=== PATIENT | female | born 1935 | race Caucasian/White ===

== ENCOUNTER 2016-12-05 18:23 | Inpatient (IN) | payer MEDICARE ==
[~2016-12-05] VITALS: Ht 162.6 cm; Wt 59.2 kg
[2016-12-05] MEDS: D5 1/2 NS W/KCL 20 MEQ/L 1,000 ML IV SCH (01:55)
[2016-12-05] MEDS ORDERED: SODIUM CHLORIDE 250 ML IV PRN (19:15)
[2016-12-05] MEDS ORDERED: NITROGLYCERIN SUBLINGUAL 0.4 MG (NITROQUICK) TABLET SL PRN (19:15)
[2016-12-05] MEDS ORDERED: ONDANSETRON 2 MG/ML (Z0FRAN) 2 ML VIAL IV ONE (19:15)
[2016-12-05] MEDS ORDERED: ASPIRIN 81 MG CHEW (CHILDREN'S ASA) PO ONE (19:15)
[2016-12-05] MEDS ORDERED: SODIUM CHLORIDE FLUSH 3 ML SYR IV PRN (19:15)
[2016-12-05] MEDS ORDERED: morphine INJ 4 MG/ML 1 ML SYRINGE IV PRN (19:15)
[2016-12-05] MEDS ORDERED: SODIUM CHLORIDE FLUSH 10 ML SYR IV PRN (19:15)
[2016-12-05 19:32] LABS: MEAN CORPUSCULAR HEMOGLOBIN 29.4 PG (26.0-34.0); MEAN CORPUSCULAR HGB CONC 31.9 g/dL (31.0-37.0); MEAN CORPUSCULAR VOLUME 92 FL (80-100); MEAN PLATELET VOLUME 10.9 FL (6.0-9.5); PLATELET COUNT 326 10^3uL (150-450); WHITE BLOOD COUNT 9.88 10^3uL (4.0-11.0)
[2016-12-05 19:37] LABS: ALBUMIN 2.9 g/dL (3.4-5.0); ALKALINE PHOSPHATASE 116 U/L (38-126); ANION GAP 13.1 MEQ/L (3-15); BUN/CREATININE RATIO 29 (10-20); CALCULATED IONIZED CALCIUM 3.8 mg/dL (3.8-4.6); CREATINE KINASE 41 U/L (30-135); TOTAL PROTEIN 7.5 g/dL (6.4-8.5)
[2016-12-05 19:47] LABS: BAND NEUTROPHILS % 2 % (0-6); EOSINOPHILS % 0 % (0-4); MONOCYTES # 0.3 #; MONOCYTES % 3 % (3-11); RBC MORPH NORMAL (NORMAL); SEGMENTED NEUTROPHILS % 95 % (51-67); TOTAL CELLS COUNTED 100
--- NOTE | 2016-12-05 20:28 | NUR ---
Note [email or web address] in EDM - 12/05/16 at 2051 by [id number] Officer Rusty from the [facility] department called to give us more information that he had recieved after speakinig with patient's sister. He reported, "I was speaking with patient's sister who told me that patient was talking to her yesterday about taking the ambien, was talking about Suicide and she said the reason he was feeling this was was from losing his 2 years ago, moving and losing his job. She said he has been really depressed and has been talking about suicide for a while now." I relayed information to Dr. Ngo and Darcie Sifuentes RN taking care of patient.
--- NOTE | 2016-12-05 20:49 | NUR ---
DUPLICATE TRIAGE ASSESSMENT ENTERED DUE TO HEIGHT AND WEIGHT BEING INCORRECT.
--- NOTE | 2016-12-05 22:24 | NUR ---
TEMP RECHECKED, 101.0 ORAL
[2016-12-05] MEDS ORDERED: ACETAMINOPHEN 500 MG TAB (TYLENOL) PO ONE (22:25)
[2016-12-05] MEDS ORDERED: AZITHROMYCIN VIAL 500 MG in SODIUM CHLORIDE 250 ML IV ONE ×4 (22:40)
[2016-12-05] MEDS ORDERED: cefTRIAXone SODIUM 1,000 MG in SODIUM CHLORIDE 50 ML IV ONE ×4 (22:40)
[2016-12-05] MEDS ORDERED: ACETAMINOPHEN 325 MG TAB (TYLENOL) PO PRN (22:45)
[2016-12-05] MEDS ORDERED: ONDANSETRON 4 MG (ZOFRAN) ORAL DISSOLVE TAB PO PRN (22:45)
[2016-12-05] MEDS ORDERED: LACTATED RINGERS 1,000 ML IV SCH (22:45)
[2016-12-05] MEDS ORDERED: SODIUM CHLORIDE 50 ML IV ONE (22:53)
[2016-12-05] MEDS ORDERED: cefTRIAXone 1 GM (ROCEPHIN) VIAL ONE (22:53)
[2016-12-05] MEDS ORDERED: ALBUTEROL 0.083% NEB SOLUTION 2.5 MG/3 ML VIAL INH PRN (23:00)
[2016-12-05] MEDS ORDERED: AZITHROMYCIN 500 MG (ZITHROMAX) VIAL IV ONE (23:31)
[2016-12-05] MEDS ORDERED: SODIUM CHLORIDE 250 ML ONE (23:31)
[2016-12-05] MEDS ORDERED: SODIUM CHLORIDE FLUSH 3 ML SYR ONE (23:32)
[2016-12-05 23:36] VITALS: BP 115/51
[2016-12-05 23:38] VITALS: BP 115/51
--- NOTE | 2016-12-05 23:38 | NUR ---
Pt arrived to room 318 via cart, accompanied by daughter and Emily RN. Alert and oriented x4, Resp are even and nonlabored, hear fine crackles to bilateral upper lobes, with diminished bases bilaterally, HRRR, paced a-fib on telemetry, BS are active x 4 quadrants. Denies pain or discomfort at this time, started LR 1000ml over 2 hrs and IV Zithromax. RT is hear giving breathing treatment. Call light is in reach, will continue to monitor.
[2016-12-05 23:39] VITALS: BP 115/51
[2016-12-05] MEDS: ALBUTEROL/IPRATROPIUM 3MG-0.5MG/3ML (DUONEB) NEB VIAL INH SCH (23:52)
[2016-12-06 04:41] VITALS: BP 100/55
--- NOTE | 2016-12-06 04:55 | NUR ---
Pt is resting in bed asleep, has not had any pain or discomfort during this shift. Currently receiving D51/2NS with 20mEQ at 125mls. Call light is in reach, will continue to monitor.
[2016-12-06 06:07] LABS: BASOPHILS % (AUTO) 0 % (0-2); EOSINOPHILS % (AUTO) 0 % (0-4); LYMPHOCYTES # (AUTO) 0.4 X10^3; MEAN CORPUSCULAR HEMOGLOBIN 28.9 PG (26.0-34.0); MEAN CORPUSCULAR VOLUME 93 FL (80-100); MEAN PLATELET VOLUME 10.6 FL (6.0-9.5); MONOCYTES # (AUTO) 0.5 X10^3; MONOCYTES % (AUTO) 11 % (3-11); NEUTROPHILS # (AUTO) 4.2 X10^3; NEUTROPHILS % (AUTO) 81 % (51-67); PLATELET COUNT 295 10^3uL (150-450); WHITE BLOOD COUNT 5.14 10^3uL (4.0-11.0)
[2016-12-06 06:14] LABS: MEAN CORPUSCULAR HGB CONC 31.1 g/dL (31.0-37.0)
[2016-12-06 06:31] LABS: ANION GAP 8.5 MEQ/L (3-15)
[2016-12-06] MEDS: ALBUTEROL/IPRATROPIUM 3MG-0.5MG/3ML (DUONEB) NEB VIAL INH SCH ×3 (06:38→19:25)
--- NOTE | 2016-12-06 07:50 | NUR ---
Patient sitting up in bed consuming breakfast upon shift assessment. 5L of 02 per oxymask off of face. Continuous pulse oximetry intact and reflecting oxygen saturation of 88%. 2.5L of 02 applied per nc. Patient states that is her chronic home regimen. Saturation quickly recovers to 97%. Respirations even and non-labored. Patient reports chronic "bone" pain. Denies SOA, nausea, or chills. Updated on plan of care for shift. Call light in reach.
[2016-12-06 08:04] VITALS: BP 130/62
[2016-12-06] MEDS ORDERED: NS FLUSH 3 ML PRN IV (08:45)
[2016-12-06] MEDS: METOCLOPRAMIDE 5 MG (REGLAN) TAB PO SCH ×4 (08:45→21:00)
[2016-12-06] MEDS: NS FLUSH 3 ML DAILY IV SCH (09:00)
[2016-12-06] MEDS ORDERED: LOSARTAN 50 MG (COZAAR) TABLET PO SCH (09:00)
[2016-12-06] MEDS ORDERED: ATORVASTATIN 40 MG PO SCH (09:00)
[2016-12-06] MEDS ORDERED: DILTIAZEM HCL 240 MG PO SCH (09:00)
[2016-12-06] MEDS ORDERED: [UNRECOGNIZED DRUG - OTHER] PO SCH (09:00)
[2016-12-06] MEDS ORDERED: OMEPRAZOLE 40 MG PO SCH (09:00)
[2016-12-06] MEDS: ISOSORBIDE MONONITRATE 30 MG (IMDUR) TAB PO SCH (09:13)
[2016-12-06] MEDS: meTOproloL SUCCINATE 50 MG (TOPROL XL) TAB PO SCH (09:13)
[2016-12-06] MEDS: HYDROcodone/APAP 7.5 MG/325 MG (NORCO) TABLET PO SCH ×2 (09:13→21:00)
[2016-12-06] MEDS: LOSARTAN 25 MG (COZAAR) TABLET PO SCH (09:13)
[2016-12-06] MEDS: ASPIRIN 81 MG CHEW (CHILDREN'S ASA) PO SCH (09:13)
[2016-12-06] MEDS: DILTIAZEM CD 240 MG (CARDIZEM CD) CAP PO SCH (09:13)
[2016-12-06] MEDS: ENOXAPARIN 40 MG/0.4 ML (LOVENOX) SYR SC SCH (09:14)
[2016-12-06] MEDS: PANTOPRAZOLE 40 MG (PROTONIX) TAB PO SCH (09:14)
[2016-12-06] MEDS: D5 1/2 NS W/KCL 20 MEQ/L 1,000 ML IV SCH (10:40)
[2016-12-06 12:09] VITALS: BP 102/52
[2016-12-06] MEDS ORDERED: DOCUSATE SODIUM 100 MG (COLACE) CAP PO PRN (14:55)
[2016-12-06] MEDS ORDERED: POLYETHYLENE GLYCOL 17 GM (MIRALAX) PACKET PO PRN (14:55)
[2016-12-06] MEDS ORDERED: MAGNESIUM HYDROXIDE 80MG/ML (MILK OF MAGNESIA) 30 ML UDC PO PRN (14:55)
[2016-12-06] MEDS ORDERED: D5 1/2 NS W/KCL 20 MEQ/L 1,000 ML IV SCH (15:45)
[2016-12-06 16:01] VITALS: BP 150/68
[2016-12-06 16:38] LABS: INFLUENZA VIRUS TYPE A ANTIBOD Negative (NEGATIVE); INFLUENZA VIRUS TYPE B ANTIBOD Negative (NEGATIVE)
--- NOTE | 2016-12-06 18:01 | NUR ---
MED REC COMPLETE--current med list obtained from external med history application and retail pharmacy ([facility]).
--- NOTE | 2016-12-06 18:09 | NUR ---
Patient sitting up in bed consuming supper. Reports two loose stools this afternoon that is worrisome to her. Dr. Andrews notified. Denies pain, SOA, or other distress. 2.5L of 02 intact per mo. Telemetry discontinued per order. Call light in reach.
[2016-12-06] MEDS ORDERED: ALBUTEROL 0.083% NEB SOLUTION 2.5 MG/3 ML VIAL INH PRN (19:00)
[2016-12-06] MEDS ORDERED: ALBUTEROL/IPRATROPIUM 3MG-0.5MG/3ML (DUONEB) NEB VIAL INH ONE (19:08)
[2016-12-06] MEDS ORDERED: NITROGLYCERIN SUBLINGUAL 0.4 MG (NITROQUICK) TABLET SL PRN (19:15)
[2016-12-06 20:02] VITALS: BP 114/58
[2016-12-06] MEDS: MIRTAZAPINE 15 MG (REMERON) TABLET PO SCH (21:00)
[2016-12-06] MEDS: cefTRIAXone SODIUM 1,000 MG in SODIUM CHLORIDE 50 ML IV SCH (21:00)
[2016-12-06] MEDS ORDERED: cefTRIAXone SODIUM 1,000 MG in SODIUM CHLORIDE 50 ML IV SCH (21:00)
[2016-12-06] MEDS: ATORVASTATIN 40 MG (LIPITOR) TABLET PO SCH (21:00)
[2016-12-06] MEDS ORDERED: AZITHROMYCIN VIAL 500 MG in SODIUM CHLORIDE 250 ML IV SCH (21:30)
[2016-12-06] MEDS: AZITHROMYCIN VIAL 500 MG in SODIUM CHLORIDE 250 ML IV SCH (22:07)
[2016-12-06 23:43] VITALS: BP 107/43
[2016-12-07 03:59] VITALS: BP 124/57
--- NOTE | 2016-12-07 05:13 | NUR ---
Pt has been resting in bed asleep for most of this shift, reports that scheduled [place] has help with lower back pain. Denies needs at this time. Call light in reach, will continue to monitor.
[2016-12-07] MEDS: METOCLOPRAMIDE 5 MG (REGLAN) TAB PO SCH ×4 (06:06→20:10)
[2016-12-07] MEDS: PANTOPRAZOLE 40 MG (PROTONIX) TAB PO SCH (06:06)
[2016-12-07 07:37] VITALS: BP 125/57
[2016-12-07] MEDS: ALBUTEROL/IPRATROPIUM 3MG-0.5MG/3ML (DUONEB) NEB VIAL INH SCH ×3 (07:57→19:53)
--- NOTE | 2016-12-07 08:26 | NUR ---
NUTRITION ASSESSMENT Level 1 Patient: Valerie Mckeon Age/Sex: 81/F Date Screened: 12-07-16 Weight: 132.4#/60.2 kg Height: 64 inches Primary Diagnosis: sepsis, pneumonia Diet Order: cardiac Relevant labs: N/A Food allergies: N Nutrition Assessment Criteria Age over 80: 4 points Body Mass Index (BMI) under 19: N Admission Screening Indicates Risk? 6 points Moderate/High Risk Diagnosis: 3 points TPN or PPN: N NPO or clear liquid diet: N Serum Glucose <70 or >180: N/A Hgb A1c >6.7: N/A Total: 13 points Risk Screen: __ Patient at low nutritional risk based on available data; reevaluate in 5-7 days __ Patient at moderate nutritional risk based on available data; reevaluate in 3-5 days _X_ Patient at high nutritional risk; complete Nutrition Assessment within 48 hours of admission.
[2016-12-07] MEDS ORDERED: ATORVASTATIN 40 MG (LIPITOR) TABLET PO SCH (09:00)
[2016-12-07] MEDS: DILTIAZEM CD 240 MG (CARDIZEM CD) CAP PO SCH (09:15)
[2016-12-07] MEDS: ASPIRIN 81 MG CHEW (CHILDREN'S ASA) PO SCH (09:15)
[2016-12-07] MEDS: HYDROcodone/APAP 7.5 MG/325 MG (NORCO) TABLET PO SCH ×2 (09:15→20:11)
[2016-12-07] MEDS: meTOproloL SUCCINATE 50 MG (TOPROL XL) TAB PO SCH (09:16)
[2016-12-07] MEDS: ISOSORBIDE MONONITRATE 30 MG (IMDUR) TAB PO SCH (09:16)
[2016-12-07] MEDS: ENOXAPARIN 40 MG/0.4 ML (LOVENOX) SYR SC SCH (09:16)
[2016-12-07] MEDS: LOSARTAN 25 MG (COZAAR) TABLET PO SCH (09:16)
[2016-12-07] MEDS: guaiFENesin ER 600 MG (MUCINEX) TAB PO SCH ×2 (09:16→20:10)
[2016-12-07] MEDS: NS FLUSH 3 ML DAILY IV SCH (09:17)
--- NOTE | 2016-12-07 11:51 | NUR ---
Amb with PT. Gait steady. Jessica well. O2 sat 93% on 3 L/ NC while amb PT reports.
[2016-12-07 11:59] VITALS: BP 114/53
--- NOTE | 2016-12-07 12:43 | NUR ---
NUTRITION ASSESSMENT Level II Patient: Valerie Mckeon Age/Sex: 81/F Date Assessed: 12-07-16 ASSESSMENT Pertinent History: Patient admitted with sepsis and pneumonia, and screened at high nutritional risk secondary to decreased appetite in elderly female with hx. unintentional weight loss over the past 4 years that appears to be ongoing. PMHx includes GERD, IBS, Pagets disease of the brain, CAD, diabetes and chronic low back pain. Weight hx. includes 50# loss between [id number] for which no etiology was found. She had an EGD in 2014 and weighed 167#. Since then, she is down another 35#. She lives at home with her . Meds/Nutrition: Remeron, Protonix, Reglan Weight: 132.4#/60.2 kg Height: 64 inches Body Mass Index (BMI): 22.8 [place] Body Weight : 120#/54.5 kg % IBW: 110% GASTROINTESTINAL Appetite: poor, taking bites-50% Diet Order: cardiac Unintentional loss of >10 lbs. in 3 months: N Difficult to chew/swallow: N Diabetes: Yes Relevant Labs: N/A Calculations for Nutritional Assessment Estimated calorie needs: 25-28 kcals/kg = 1,500-1,680 kcals Estimated protein needs: 1.0-1.3 g/kg = 60-78 g./day DIAGNOSIS 1. Nutrition Diagnosis: Inadequate intake related to decreased appetite as evidenced by 32# (20.9%) weight loss in the past 2 years with c/o chronically low appetite for the past 5 years with undetermined etiology. NUTRITIONAL INTERVENTION Goal: Patient will receive adequate nutrition to meet her needs and maintain weight. Plan: Agree with Remeron in the hopes that it may stimulate her appetite as well as address her anxiety. Consider liberalizing diet from cardiac (which is 2 g. sodium/low fat) to [id number] to improve the taste of food and help increase p.o. intake. Noted she is getting Ensure--consider Glucerna instead, as she has diabetes and blood sugars were slightly elevated. Pt. may benefit from smaller, more frequent portions as well. Will follow closely. MONITORING & EVALUATION _X_ Monitor patients menu selections _X_ Monitor patients food intake per nursing notes __ Monitor NPO/clear liquid days __ Monitor lab values __ Monitor I&O __ Other
[2016-12-07 15:35] VITALS: BP 109/53
--- NOTE | 2016-12-07 19:39 | NUR ---
Pt seen and assessed. Denies pain. States that she feels very tired. Requests to have evening pills given as soon as available so that she can get some rest. Cont on 2.5L oxygen per nc. No further needs at this time.
[2016-12-07 19:44] VITALS: BP 121/49
--- NOTE | 2016-12-07 19:55 | NUR ---
Pt found lying in bed on 2.5 l/min equal to home use, SPO2 91%, HR 70, RR 16 and nonlabored. Rhonchi heard in all lung [place] upon auscultation before and after Duoneb. Acapella X5 after Tx producing a large amount of sputum with a loose cough.
[2016-12-07] MEDS ORDERED: SODIUM CHLORIDE 250 ML ONE (20:06)
[2016-12-07] MEDS: ATORVASTATIN 40 MG (LIPITOR) TABLET PO SCH (20:10)
[2016-12-07] MEDS: ZOLPIDEM 5 MG (AMBIEN) TAB PO SCH (20:10)
[2016-12-07] MEDS: MIRTAZAPINE 15 MG (REMERON) TABLET PO SCH (20:10)
[2016-12-07] MEDS: NS FLUSH 10 ML PRN IV (20:11)
[2016-12-07] MEDS: cefTRIAXone SODIUM 1,000 MG in SODIUM CHLORIDE 50 ML IV SCH (20:11)
[2016-12-07] MEDS: AZITHROMYCIN VIAL 500 MG in SODIUM CHLORIDE 250 ML IV SCH (20:42)
[2016-12-07 23:58] VITALS: BP 109/50
[2016-12-08 04:32] VITALS: BP 124/56
[2016-12-08] MEDS: PANTOPRAZOLE 40 MG (PROTONIX) TAB PO SCH (06:20)
[2016-12-08] MEDS: METOCLOPRAMIDE 5 MG (REGLAN) TAB PO SCH ×4 (06:20→20:04)
--- NOTE | 2016-12-08 06:23 | NUR ---
Pt states that she rested "better" tonight, but "not good enough for having a sleeping pill." Denies pain. Cont on 2.5L oxygen. SL intact. No needs at this time.
--- NOTE | 2016-12-08 07:30 | NUR ---
Patient awake sitting on edge of bed eating breakfast and visiting with and son. Patient denies any pain at this time but requested scheduled [place]. Scheduled [place] given with morning medications. Patient is alert and oriented X3. Patient denies any new concerns at this time. Will continue to monitor patient.
[2016-12-08] MEDS: guaiFENesin ER 600 MG (MUCINEX) TAB PO SCH ×2 (08:12→20:05)
[2016-12-08] MEDS: DILTIAZEM CD 240 MG (CARDIZEM CD) CAP PO SCH (08:12)
[2016-12-08] MEDS: meTOproloL SUCCINATE 50 MG (TOPROL XL) TAB PO SCH (08:12)
[2016-12-08] MEDS: ISOSORBIDE MONONITRATE 30 MG (IMDUR) TAB PO SCH (08:12)
[2016-12-08] MEDS: ASPIRIN 81 MG CHEW (CHILDREN'S ASA) PO SCH (08:12)
[2016-12-08] MEDS: LOSARTAN 25 MG (COZAAR) TABLET PO SCH (08:12)
[2016-12-08] MEDS: ENOXAPARIN 40 MG/0.4 ML (LOVENOX) SYR SC SCH (08:13)
[2016-12-08] MEDS: NS FLUSH 3 ML DAILY IV SCH (08:13)
[2016-12-08] MEDS: HYDROcodone/APAP 7.5 MG/325 MG (NORCO) TABLET PO SCH ×2 (08:13→20:10)
[2016-12-08 08:23] VITALS: BP 143/64
[2016-12-08] MEDS: ALBUTEROL/IPRATROPIUM 3MG-0.5MG/3ML (DUONEB) NEB VIAL INH SCH ×3 (08:24→19:55)
[2016-12-08 12:08] VITALS: BP 100/47
[2016-12-08 15:53] VITALS: BP 105/52
--- NOTE | 2016-12-08 18:32 | NUR ---
Uneventful day shift. Patient remains on chronic 2.5L of 02 per nc. Denies pain or distress. Ambulates into bathroom and around room with steady gate throughout day. Pleasant and cooperative with cares. Call light in reach.
[2016-12-08 19:34] VITALS: BP 139/55
--- NOTE | 2016-12-08 19:58 | NUR ---
Pt is laying in bed with head elevated, tolerated tx well. On 2.5L NC SPO2 91%.
[2016-12-08] MEDS: NS FLUSH 10 ML PRN IV (20:04)
[2016-12-08] MEDS: ZOLPIDEM 5 MG (AMBIEN) TAB PO SCH (20:04)
[2016-12-08] MEDS: cefTRIAXone SODIUM 1,000 MG in SODIUM CHLORIDE 50 ML IV SCH (20:04)
[2016-12-08] MEDS: MIRTAZAPINE 15 MG (REMERON) TABLET PO SCH (20:05)
[2016-12-08] MEDS: ATORVASTATIN 40 MG (LIPITOR) TABLET PO SCH (20:05)
--- NOTE | 2016-12-08 20:05 | NUR ---
SL does not flush. Redness, slight swelling noted around catheter hub. IV discontinued; catheter tip intact. This nurse attempts x3 to restart IV; all unsuccessful. Gema RN starts 22g to RBH on first attempt.
[2016-12-08 23:57] VITALS: BP 152/61
[2016-12-09 04:08] VITALS: BP 128/72
[2016-12-09] MEDS: METOCLOPRAMIDE 5 MG (REGLAN) TAB PO SCH ×4 (06:22→20:44)
[2016-12-09] MEDS: PANTOPRAZOLE 40 MG (PROTONIX) TAB PO SCH (06:22)
--- NOTE | 2016-12-09 06:24 | NUR ---
Pt rests in long intervals throughout the night. minimal c/o pain. States she feels like she is getting constipated. PRN laxatives offered last evening. Pt requests to wait until morning; prefers MOM. SL intact. Cont on 2.5L oxygen per nc. Denies needs this morning.
--- NOTE | 2016-12-09 08:05 | NUR ---
C/o needing something for bowels. Has hard formed brown stool. Miralax 17 gm and Colace 100 mg given for constipation. Up ad sharon in room - steady on ambulation.
[2016-12-09 08:26] VITALS: BP 135/59
[2016-12-09 09:15] LABS: BASOPHILS % (AUTO) 2 % (0-2); EOSINOPHILS % (AUTO) 1 % (0-4); LYMPHOCYTES # (AUTO) 0.5 X10^3; MEAN CORPUSCULAR HEMOGLOBIN 28.9 PG (26.0-34.0); MEAN CORPUSCULAR VOLUME 93 FL (80-100); MEAN PLATELET VOLUME 11.1 FL (6.0-9.5); MONOCYTES # (AUTO) 0.4 X10^3; MONOCYTES % (AUTO) 13 % (3-11); NEUTROPHILS # (AUTO) 1.8 X10^3; NEUTROPHILS % (AUTO) 66 % (51-67); PLATELET COUNT 308 10^3uL (150-450); WHITE BLOOD COUNT 2.65 10^3uL (4.0-11.0)
[2016-12-09 09:21] LABS: MEAN CORPUSCULAR HGB CONC 31.2 g/dL (31.0-37.0)
[2016-12-09 09:24] LABS: ANION GAP 10.5 MEQ/L (3-15); MAGNESIUM* 1.7 mg/dL (1.6-2.3)
[2016-12-09] MEDS: ALBUTEROL/IPRATROPIUM 3MG-0.5MG/3ML (DUONEB) NEB VIAL INH SCH ×3 (09:40→20:28)
[2016-12-09] MEDS: NS FLUSH 3 ML DAILY IV SCH ×2 (09:56→20:45)
[2016-12-09] MEDS: ISOSORBIDE MONONITRATE 30 MG (IMDUR) TAB PO SCH (09:57)
[2016-12-09] MEDS: ASPIRIN 81 MG CHEW (CHILDREN'S ASA) PO SCH (09:57)
[2016-12-09] MEDS: LOSARTAN 25 MG (COZAAR) TABLET PO SCH (09:57)
[2016-12-09] MEDS: guaiFENesin ER 600 MG (MUCINEX) TAB PO SCH ×2 (09:57→20:43)
[2016-12-09] MEDS: meTOproloL SUCCINATE 50 MG (TOPROL XL) TAB PO SCH (09:57)
[2016-12-09] MEDS: HYDROcodone/APAP 7.5 MG/325 MG (NORCO) TABLET PO SCH ×2 (09:58→20:44)
[2016-12-09] MEDS: ENOXAPARIN 40 MG/0.4 ML (LOVENOX) SYR SC SCH (09:58)
[2016-12-09] MEDS: DILTIAZEM CD 240 MG (CARDIZEM CD) CAP PO SCH (09:58)
[2016-12-09 12:05] VITALS: BP 98/47
[2016-12-09 16:13] VITALS: BP 115/53
--- NOTE | 2016-12-09 17:51 | NUR ---
Loose NPC with acapella use. O2 @ 2.5L nc (home use). Jessica. tx's well.
--- NOTE | 2016-12-09 18:36 | NUR ---
Dozing now. Has voiced no complaints of pain. Resp. even and unlabored. States has a poor appetite. No c/o nausea. Up ad sharon in room.
--- NOTE | 2016-12-09 20:00 | NUR ---
Patient resting in bed. Is alert and oriented. Skin warm and dry. Color pale. Oxygen on at 2.5 liters per nasal cannula. Denies any discomforts at this time. Call light within reach.
[2016-12-09 20:06] VITALS: BP 128/68
--- NOTE | 2016-12-09 20:30 | NUR ---
Pt found lying in bed on 2.5 l/min NC, SPO2 93%, HR 79, RR 14 and non labored. BS clear before and after Duoneb via SVN/MASK. Acapella X 5 post Tx inducing a loose NPC.
[2016-12-09] MEDS: ATORVASTATIN 40 MG (LIPITOR) TABLET PO SCH (20:43)
[2016-12-09] MEDS: ZOLPIDEM 5 MG (AMBIEN) TAB PO SCH (20:43)
[2016-12-09] MEDS: MIRTAZAPINE 15 MG (REMERON) TABLET PO SCH (20:43)
[2016-12-09] MEDS: cefTRIAXone SODIUM 1,000 MG in SODIUM CHLORIDE 50 ML IV SCH (20:44)
--- NOTE | 2016-12-09 22:00 | NUR ---
Patient ready for sleep. HS cares given. Tolerates IV Antibiotics well. No signs of infiltration at IV site. Call light within reach. No discomforts voiced at this time. Oxygen remains at 2.5 liters.
[2016-12-09 23:51] VITALS: BP 105/51
[2016-12-10 04:58] VITALS: BP 119/53
[2016-12-10] MEDS: PANTOPRAZOLE 40 MG (PROTONIX) TAB PO SCH (06:14)
[2016-12-10] MEDS: METOCLOPRAMIDE 5 MG (REGLAN) TAB PO SCH ×4 (06:28→21:43)
--- NOTE | 2016-12-10 06:30 | NUR ---
Patient rested well tonight. Called for assistance to the bathroom once. Afebrile this morning. Denies any discomforts this morning. Call light within reach.
[2016-12-10 06:37] LABS: ANION GAP 7.1 MEQ/L (3-15)
[2016-12-10 06:38] LABS: MEAN CORPUSCULAR HEMOGLOBIN 28.5 PG (26.0-34.0); MEAN CORPUSCULAR VOLUME 92 FL (80-100); PLATELET COUNT 270 10^3uL (150-450)
[2016-12-10 06:41] LABS: MEAN CORPUSCULAR HGB CONC 30.9 g/dL (31.0-37.0)
[2016-12-10 07:05] LABS: BAND NEUTROPHILS % 0 % (0-6); EOSINOPHILS % 3 % (0-4); LYMPHOCYTES # 0.6 #; MONOCYTES # 0.4 #; MONOCYTES % 18 % (3-11); RBC MORPH NORMAL (NORMAL); SEGMENTED NEUTROPHILS % 56 % (51-67); TOTAL CELLS COUNTED 100
[2016-12-10 08:23] VITALS: BP 137/58
[2016-12-10] MEDS: ASPIRIN 81 MG CHEW (CHILDREN'S ASA) PO SCH (08:44)
[2016-12-10] MEDS: meTOproloL SUCCINATE 50 MG (TOPROL XL) TAB PO SCH (08:45)
[2016-12-10] MEDS: ISOSORBIDE MONONITRATE 30 MG (IMDUR) TAB PO SCH (08:45)
[2016-12-10] MEDS: HYDROcodone/APAP 7.5 MG/325 MG (NORCO) TABLET PO SCH ×2 (08:45→21:43)
[2016-12-10] MEDS: DILTIAZEM CD 240 MG (CARDIZEM CD) CAP PO SCH (08:46)
[2016-12-10] MEDS: ENOXAPARIN 40 MG/0.4 ML (LOVENOX) SYR SC SCH (08:46)
[2016-12-10] MEDS: guaiFENesin ER 600 MG (MUCINEX) TAB PO SCH ×2 (08:47→21:43)
[2016-12-10] MEDS: LOSARTAN 25 MG (COZAAR) TABLET PO SCH (08:47)
[2016-12-10] MEDS: ALBUTEROL/IPRATROPIUM 3MG-0.5MG/3ML (DUONEB) NEB VIAL INH SCH ×3 (09:13→19:54)
[2016-12-10] MEDS ORDERED: SIMETHICONE 80 MG (MYLICON) CHEW PO PRN (10:30)
[2016-12-10] MEDS: AMOXICILLIN 500 MG (AMOXIL) CAPSULE PO SCH ×2 (11:26→21:44)
[2016-12-10 12:54] VITALS: BP 106/54
--- NOTE | 2016-12-10 15:06 | NUR ---
Pt denies needs at present. Family at bedside visiting with pt.
[2016-12-10 16:35] VITALS: BP 112/52
--- NOTE | 2016-12-10 18:10 | NUR ---
Resting in bed. Alert and oriented. Cooperative. Denies pain. States Mylicon chewable taken this morning helped relieve gas pain. Continues to have poor appetite. Family visited frequently throughout day. O2 on at 2.5 L continuously.
--- NOTE | 2016-12-10 19:56 | NUR ---
Pt found lying in bed on 2 l/min NC, SPO2 94%, HR 72, RR 14 shallow and non labored. BS clear before and after Duoneb via SVN/MASK. Acapella X 5 inducing a loose NPC.
--- NOTE | 2016-12-10 20:00 | NUR ---
Patient rests in bed.
--- NOTE | 2016-12-10 20:00 | NUR ---
Patient resting in bed. Had several visitors today and is tired. Dr Boyle called and will up to see patient. He will be talking to her about possibly going to skilled care for a few weeks per family request.
[2016-12-10 20:13] VITALS: BP 129/58
--- NOTE | 2016-12-10 20:30 | NUR ---
Dr Boyle here to visit with patient.
--- NOTE | 2016-12-10 21:30 | NUR ---
HS cares given. Ready for sleep. HOB elevated 30 degrees. Respirations even and non-labored. Hawkins 7.5 mg administered on schedule as ordered. Oxygen remains on at 2.5 liters per nasal cannula. No other needs requested. Call light within reach. Reminded patient to call for assistance when needing to use the bathroom.
[2016-12-10] MEDS: ZOLPIDEM 5 MG (AMBIEN) TAB PO SCH (21:43)
[2016-12-10] MEDS: MIRTAZAPINE 15 MG (REMERON) TABLET PO SCH (21:43)
[2016-12-10] MEDS: ATORVASTATIN 40 MG (LIPITOR) TABLET PO SCH (21:43)
--- NOTE | 2016-12-11 | NUR ---
Resting with eyes closed. No respiratory difficulties noted.Oxygen remains on.
[2016-12-11 00:02] VITALS: BP 108/52
[2016-12-11 05:25] VITALS: BP 131/61
[2016-12-11] MEDS: PANTOPRAZOLE 40 MG (PROTONIX) TAB PO SCH (06:19)
--- NOTE | 2016-12-11 06:38 | NUR ---
Rested well tonight. Wanting to go home soon. Remains alert and oriented. Denies any discomforts this morning. Oxygen remains on at 2.5 liters per NC. Call light within reach.
[2016-12-11 07:34] VITALS: BP 137/64
[2016-12-11] MEDS: HYDROcodone/APAP 7.5 MG/325 MG (NORCO) TABLET PO SCH (08:20)
[2016-12-11] MEDS: DILTIAZEM CD 240 MG (CARDIZEM CD) CAP PO SCH (08:20)
[2016-12-11] MEDS: AMOXICILLIN 500 MG (AMOXIL) CAPSULE PO SCH (08:20)
[2016-12-11] MEDS: LOSARTAN 25 MG (COZAAR) TABLET PO SCH (08:20)
[2016-12-11] MEDS: ISOSORBIDE MONONITRATE 30 MG (IMDUR) TAB PO SCH (08:20)
[2016-12-11] MEDS: ASPIRIN 81 MG CHEW (CHILDREN'S ASA) PO SCH (08:20)
[2016-12-11] MEDS: NS FLUSH 3 ML DAILY IV SCH (08:21)
[2016-12-11] MEDS: METOCLOPRAMIDE 5 MG (REGLAN) TAB PO SCH ×2 (08:21→11:27)
[2016-12-11] MEDS: meTOproloL SUCCINATE 50 MG (TOPROL XL) TAB PO SCH (08:21)
[2016-12-11] MEDS: ENOXAPARIN 40 MG/0.4 ML (LOVENOX) SYR SC SCH (08:21)
[2016-12-11] MEDS: guaiFENesin ER 600 MG (MUCINEX) TAB PO SCH (08:21)
[2016-12-11] MEDS: ALBUTEROL/IPRATROPIUM 3MG-0.5MG/3ML (DUONEB) NEB VIAL INH SCH (08:53)
[2016-12-11 11:21] VITALS: BP 115/49
--- NOTE | 2016-12-11 11:29 | NUR ---
Visited with Pt. regarding her discharge plans. Pt. is not interested in skilled care and when asked what her reservations were she said she just wanted to go home. SW then discussed home health options with Pt. Pt. decided to use [facility]. SW answered Pt. questions about home health. SUSANNAH will notify Dr. Andrews of Pt. choice.
--- NOTE | 2016-12-11 14:54 | NUR ---
Discharge order received. IV discontinued with catheter intact. No redness or swelling noted at insertion site. Instructions provided to patient and son with verbal and written understanding expressed. Discharged via wheelchair to private car accompanied by son and RUFFLER. No further needs.
== END 2016-12-11 15:01 | disposition home health service (06) | DRG 871 ==
LOC: ED 18:26 → MED/SURG 22:45
PROVIDERS: ADMIT Family Medicine; ATTEND Family Medicine
DX: A41.9 Sepsis, unspecified organism (principal); J18.9 Pneumonia, unspecified organism; J96.20 Acute and chronic respiratory failure, unspecified whether with hypoxia or hypercapnia; J47.9 Bronchiectasis, uncomplicated; F41.9 Anxiety disorder, unspecified; K21.9 Gastro-esophageal reflux disease without esophagitis; M88.9 Osteitis deformans of unspecified bone; E78.5 Hyperlipidemia, unspecified; I10 Essential (primary) hypertension; I25.10 Atherosclerotic heart disease of native coronary artery without angina pectoris; Z99.81 Dependence on supplemental oxygen; Z95.0 Presence of cardiac pacemaker
CPT/HCPCS: 36415; 71010; 74000; 80048; 80053; 82550; 82553; 83735; 84484; 85025; 85610; 85730; 86140; 87040; 87486; 87502; 87581; 87633; 87798; 93005; 93010; 94640; 94760; 94762; 96374; 99285

== ENCOUNTER → 2016-12-21 | Outpatient (CLI) | payer MEDICARE | LOC: RAD 09:48 | PROVIDERS: ATTEND Internal Medicine | DX: J18.9 Pneumonia, unspecified organism (principal) | CPT/HCPCS: 71020 ==